=== PATIENT | female | born 1980 | race American Indian/Alaskan Native ===

== ENCOUNTER 2018-06-17 06:47 | Inpatient (IN) | payer SELFPAY ==
[2018-06-17 07:28] LABS: Bacteria,Urine 1+ /HPF (Negative); Bilirubin,Urine NEG (Negative); Blood,Urine NEG (Negative); Color,Urine Yellow (Yellow); Mucus,Urine FEW /HPF; Protein,Urine <15 mg/dL mg/dL (Negative); Urobilinogen,Urine < 2.0 mg/dL (<2.0)
[2018-06-17 07:50] LABS: Basophils % (Auto) 0.3 % (0.0-1.8); Eosinophils # (Auto) 0.1 K/mm3 (0.0-0.4); Eosinophils % (Auto) 0.6 % (0.0-4.3); Hematocrit 38.5 % (30.3-42.9); Hemoglobin 13.3 gm/dl (10.1-14.3); Lymphocytes # (Auto) 2.5 K/mm3 (1.2-5.4); Lymphocytes % (Auto) 29.9 % (13.4-35.0); Mean Corpuscular HGB Conc 35 % (30-34); Mean Corpuscular Volume 102 fl (79-97); Monocytes # (Auto) 0.7 K/mm3 (0.0-0.8); Monocytes % (Auto) 8.3 % (0.0-7.3); Platelet Count 297 K/mm3 (140-440); Red Blood Count 3.77 M/mm3 (3.65-5.03); Red Cell Distribution Width 12.3 % (13.2-15.2)
[2018-06-17 08:06] LABS: Alanine Aminotransferase 11 units/L (7-56); Albumin 4.3 g/dL (3.9-5); BUN/Creatinine Ratio 12; Blood Urea Nitrogen 6 mg/dL (7-17); Calcium 9.1 mg/dL (8.4-10.2); Hemolysis Index 6
--- NOTE | 2018-06-17 08:41 | Emergency Department Report ---
<JOSSIRINA - Last Filed: 06/17/18 10:44> ED HPI - General Chief complaint: Abdominal Pain Stated complaint: ABD PAIN Time Seen by Provider: 06/17/18 07:55 - Related Data Home Medications Medication Instructions Recorded Confirmed Last Taken No Known Home Medications [No 06/17/18 06/17/18 Unknown Reported Home Medications] Allergies Allergy/AdvReac Type Severity Reaction Status Date / Time metronidazole [From Flagyl] Allergy Swelling Verified 06/17/18 07:00 ED Past Medical Hx - Medications Home Medications: Home Medications Medication Instructions Recorded Confirmed Last Taken Type No Known Home Medications [No 06/17/18 06/17/18 Unknown History Reported Home Medications] ED Medical Decision Making - Lab Data Result diagrams: 06/17/18 07:38 06/17/18 07:38 - Medical Decision Making Had a ohqp-da-dxdy with this patient. Patient on review of the patient's ultrasound was found to have a heterotopic . STARCHMAKER has been called for consultation the patient will be admitted. ED Disposition Clinical Impression: Ectopic Qualifiers: Location of ectopic : tubal Intrauterine status: with intrauterine Laterality: left Qualified Code(s): O00.112 - Left tubal with intrauterine Disposition: OP ADMIT IP TO THIS HOSP Condition: Stable Referrals: YG LIGHT MD [Primary Care Provider] - 3-5 Days <GARY GIBSON - Last Filed: 06/17/18 11:38> ED HPI - General Source: patient Mode of arrival: Ambulatory Limitations: No Limitations - History of Present Illness Initial comments: This is a 37-year-old female nontoxic, well nourished in appearance, no acute signs of distress presents to the ED with c/o of pelvic pain 1 day. Patient denies any nausea or vomiting. Patient describes pelvic pain as cramping and aching with level of 8/10 diffuse. Patient denies chest pain, short of breath, fever, chills, headache, stiff neck, numbness or tingling. Denies any vaginal bleeding. Patient denies any abdominal pain. Patient denies any diarrhea or constipation. Patient denies any recent travels. Patient stated allergies to metronidazole. Denies any PMH. LMP 04/2018. Complaint: other (pelvic pain) -: days(s) Location: pelvis Radiation: none Severity: mild Severity scale (0 -10): 8 Quality: aching Consistency: constant Improves with: none Worsens with: none Associated symptoms: other (pelvic pain). denies: nausea/vomiting, vaginal bleeding, vaginal discharge, abdominal pain, dysuria, headache, vision changes, malaise, dysparuenia, rash, seizure, shortness of breath, syncope, weakness Vaginal bleeding: none :: Yes Pre- care: none ED Review of Systems ROS: Stated complaint: ABD PAIN Other details as noted in HPI Constitutional: denies: chills, fever Eyes: denies: eye pain, eye discharge, vision change ENT: denies: ear pain, throat pain Respiratory: denies: cough, shortness of breath, wheezing Cardiovascular: denies: chest pain, palpitations Endocrine: no symptoms reported Gastrointestinal: other (pelvic pain). denies: abdominal pain, nausea, vomiting , diarrhea Genitourinary: denies: urgency, dysuria, discharge Musculoskeletal: denies: back pain, joint swelling, arthralgia Skin: denies: rash, lesions Neurological: denies: headache, weakness, paresthesias Psychiatric: denies: anxiety, depression Hematological/Lymphatic: denies: easy bleeding, easy bruising ED Past Medical Hx - Past Medical History Previous Medical History?: No - Surgical History Past Surgical History?: Yes Additional Surgical History: reconstruction nose. abd - Social History Smoking Status: Current Every Day Smoker Substance Use Type: Alcohol ED Physical Exam - General Limitations: No Limitations General appearance: alert, in no apparent distress - Head Head exam: Present: atraumatic, normocephalic - Neck Neck exam: Present: normal inspection, full ROM - Respiratory Respiratory exam: Present: normal lung sounds bilaterally. Absent: respiratory distress, wheezes, rales, rhonchi, stridor, chest wall tenderness, accessory muscle use, decreased breath sounds, prolonged expiratory - Cardiovascular Cardiovascular Exam: Present: regular rate, normal rhythm, normal heart sounds. Absent: bradycardia, tachycardia, irregular rhythm, systolic murmur, diastolic murmur, rubs, gallop - GI/Abdominal GI/Abdominal exam: Present: soft, normal bowel sounds. Absent: distended, tenderness, guarding, rebound, rigid, diminished bowel sounds - Expanded GI/Abdominal Exam Expanded GI/Abdominal exam: Absent: psoas sign, Nixon's sign, Rovsing's sign, tenderness at Mcburney's Point, ascites - Extremities Exam Extremities exam: Present: normal inspection, full ROM - Back Exam Back exam: Present: normal inspection, full ROM - Neurological Exam Neurological exam: Present: alert, oriented X3 - Psychiatric Psychiatric exam: Present: normal affect, normal mood - Skin Skin exam: Present: warm, dry, intact, normal color. Absent: rash ED Course Vital Signs 06/17/18 06/17/18 06/17/18 06:49 11:14 11:16 Temperature 97.6 F 98.6 F Pulse Rate 85 63 Respiratory 16 14 14 Rate Blood Pressure 128/73 104/39 O2 Sat by Pulse 100 100 Oximetry - Reevaluation(s) Reevaluation #1: 06/17/18 08:39 Patient is speaking in full sentences with no signs of distress noted. Reevaluation #2: 06/17/18 11:37 Patient is resting comfortably with no signs of distress. - Consultations Consultation #1: 06/17/18 09:41 My OBGYN consulted for ectopic . Awaiting call back. Consultation #2: 06/17/18 10:05 Dr. Middleton (OBGYN) was consulted and agrees to the ED plan of care and admission for possible surgery. ED Medical Decision Making - Lab Data Result diagrams: 06/17/18 07:38 06/17/18 07:38 - Medical Decision Making This is a 37-year-old female that presents with heterotopic . Patient is stable and was examined by me and Donovan Telles. Patient was conuslted with Dr. Middleton that agrees for admission and possible surgery. Patient put on NPO. Given pain management. Labs obtained. At time of admission, the patient does not seem toxic or ill in appearance. No acute signs of distress noted. Patient agrees to admission treatment plan of care. No further questions noted by the patient. Critical care attestation.: If time is entered above; I have spent that time in minutes in the direct care of this critically ill patient, excluding procedure time. ED Disposition Is pt being admited?: Yes
[2018-06-17] MEDS ORDERED: NACL 0.9% 1000 ML 1,000 ML IV ONE (09:41)
--- NOTE | 2018-06-17 09:48 | Ultrasound Report ---
PROCEDURE: US OB TRANSVAGINAL, US OB <= 14 WEEKS FETUS TECHNIQUE: Transabdominal and transvaginal imaging of the pelvis was performed. HISTORY: pelvic pain COMPARISONS: None. FINDINGS: The uterus measures 10.2 x 6.5 x 7.4 cm and is anteverted. There is an intrauterine with a heart rate of 166 beats per minute. Mean gestational sac diameter is 3.51 cm, corresponding to a gestational age of 8 weeks, 5 days. [place]-rump length is 2.36 cm, corresponding to a gestational age of 9 weeks, 0 days. Composite gestational age by ultrasound is 8 weeks, 6 days, with estimated date of delivery of 2018. Within the left adnexa, there is a 7.9 x 5.4 x 6.6 cm area with a pole measuring 2.3 cm. The trasound technologist visualized positive heart motion during the study, but was not able to document this finding due to overlying bowel gas The left ovary measures 2.6 x 2.1 x 1.3 cm and is normal in appearance. Right ovary measures 2.9 x 1.8 x 1.9 cm and is normal in appearance. IMPRESSION: Heterotopic with intrauterine and left ectopic . Gestational age by ultr asound is 8 weeks, 6 days, estimated date of delivery of 01/21/2019. Heart motion was not documented due to overlying bowel gas. Recommend repeat imaging to document hear t motion. Findings were discussed with SHERLYN Murray at 9:35 AM, Eastern standard time, on 06/17/2018. This document is electronically signed by Charity Sotelo MD., June 17 2018 09:46:09 AM ET
--- NOTE | 2018-06-17 13:50 | History and Physical Report ---
History of Present Illness Date of examination: 06/17/18 Chief complaint: Severe pelvic pain History of present illness: This is a 37-year-old female 3 para 1011 who presented to the ED yesterday complaining of severe pelvic pain for 1 day. She denies fever, chills, nausea, vomiting. She also denies vaginal bleeding. Her evaluation revealed an approximately 8 cm left adnexal mass possibly consistent with ectopic however the ultrasound also revealed a viable intrauterine at 8 weeks and 6 days. 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 She denies history of abnormal Pap smears. OB history is significant for full-term vaginal delivery in 2004 followed by a 7 month spontaneous that required a D&C in 2014) Past Surgical History: Other (D&C; nose) Social history: smoking, full code, other (patient states she smoked marijuana approximately 7 months ago). denies: alcohol abuse, IV drug use Family history: no significant family history Medications and Allergies Allergies Allergy/AdvReac Type Severity Reaction Status Date / Time metronidazole [From Flagyl] Allergy Swelling Verified 06/17/18 07:00 Home Medications Medication Instructions Recorded Confirmed Last Taken Type No Known Home Medications [No 06/17/18 06/17/18 Unknown History Reported Home Medications] Review of Systems All systems: negative - Genitourinary Genitourinary: pelvic pain Exam Vital Signs Temp Pulse Resp BP Pulse Ox 97.6 F 85 16 128/73 100 06/17/18 06:49 06/17/18 06:49 06/17/18 06:49 06/17/18 06:49 06/17/18 06:49 - General physical appearance Positive: well developed, well nourished, no distress, moderate pain - Abdomen Abdomen: Present: soft. Absent: distended, rebound, guarding Results - Labs 06/17/18 07:38 06/17/18 07:38 Abnormal lab results 06/17/18 06/17/18 06/17/18 Range/Units 07:38 07:38 07:38 MCV 102 H (79-97) fl MCH 35 H (28-32) pg MCHC 35 H (30-34) % RDW 12.3 L (13.2-15.2) % [place] % (Auto) 8.3 H (0.0-7.3) % Potassium 3.5 L (3.6-5.0) mmol/L BUN 6 L (7-17) mg/dL Creatinine 0.5 L (0.7-1.2) mg/dL HCG, Quant 97386 H (0-4) mIU/mL Diabetes panel 06/17/18 Range/Units 07:38 Sodium 137 (137-145) mmol/L Potassium 3.5 L (3.6-5.0) mmol/L Chloride 102.5 (98-107) mmol/L Carbon Dioxide 26 (22-30) mmol/L BUN 6 L (7-17) mg/dL Creatinine 0.5 L (0.7-1.2) mg/dL Glucose 97 (65-100) mg/dL Calcium 9.1 (8.4-10.2) mg/dL AST 13 (5-40) units/L ALT 11 (7-56) units/L Alkaline Phosphatase 52 (35-129) units/L Total Protein 6.7 (6.3-8.2) g/dL Albumin 4.3 (3.9-5) g/dL Calcium panel 06/17/18 Range/Units 07:38 Calcium 9.1 (8.4-10.2) mg/dL Albumin 4.3 (3.9-5) g/dL Pituitary panel 06/17/18 Range/Units 07:38 Sodium 137 (137-145) mmol/L Potassium 3.5 L (3.6-5.0) mmol/L Chloride 102.5 (98-107) mmol/L Carbon Dioxide 26 (22-30) mmol/L BUN 6 L (7-17) mg/dL Creatinine 0.5 L (0.7-1.2) mg/dL Glucose 97 (65-100) mg/dL Calcium 9.1 (8.4-10.2) mg/dL Adrenal panel 06/17/18 Range/Units 07:38 Sodium 137 (137-145) mmol/L Potassium 3.5 L (3.6-5.0) mmol/L Chloride 102.5 (98-107) mmol/L Carbon Dioxide 26 (22-30) mmol/L BUN 6 L (7-17) mg/dL Creatinine 0.5 L (0.7-1.2) mg/dL Glucose 97 (65-100) mg/dL Calcium 9.1 (8.4-10.2) mg/dL Total Bilirubin 0.20 (0.1-1.2) mg/dL AST 13 (5-40) units/L ALT 11 (7-56) units/L Alkaline Phosphatase 52 (35-129) units/L Total Protein 6.7 (6.3-8.2) g/dL Albumin 4.3 (3.9-5) g/dL - Imaging US - pelvic: report reviewed, image reviewed (Both transabdominal and transvaginal images were reviewed. Transvaginal images revealed a mass labeled as occurring in the left adnexa that is reported as an ectopic qu estionable heart rate.) Assessment and Plan - Patient Problems (1) 8 weeks gestation of Current Visit: Yes Status: Acute (2) Ectopic Current Visit: Yes Status: Acute Qualifiers: Location of ectopic : tubal Intrauterine status: with intrauterine Laterality: left Qualified Code(s): O00.112 - Left tubal with intrauterine Plan to address problem: Ultrasound images and diagnosis were discussed with patient. She was informed pregnancies in the uterus and the tube simultaneously are very rare. It was emphasized to her the difficulty with confirming this diagnosis through blood work and imaging. Options were extensively reviewed with this patient, including but not limited to, observation versus proceeding with surgical intervention. She was informed she should choose observation and this is an in the tube , she would be at risk for bleeding intra-abdominally and possible should the tube rupture. Diagnostic laparoscopy was explained. She was informed of risks, including but not limited to, bleeding that may require blood transfusion, infection, injury to her bowel and/or bladder. She was informed that any of these complications or others may be fatal. It was further emphasized that this procedure may lead to a miscarriage of the viable intrauterine . She is aware that if she has a in the tube, the entire tube may be removed due to the size of the that is documented by imaging and that any attempt to maintain the tube may lead to excessive bleeding.
[2018-06-17] MEDS ORDERED: NACL 0.9% 1000 ML 1,000 ML ONE (13:57)
[2018-06-17] MEDS ORDERED: ANCEF/STERILE WATER 2 GM/20 ML 2 GM/20 ML SYRINGE IV NR (14:00)
--- NOTE | 2018-06-17 14:32 | Anesthesia Consultation ---
Anesthesia Consult and Med Hx Date of service: 06/17/18 - Airway Anesthetic Teeth Evaluation: Good ROM Head & Neck: Adequate Mental/Hyoid Distance: Adequate Mallampati Class: Class II Intubation Access Assessment: Good - Pulmonary Exam CTA: Yes - Cardiac Exam Cardiac Exam: No Murmur - Pre-Operative Health Status ASA Pre-Surgery Classification: ASA2 Proposed Anesthetic Plan: General - Pulmonary Hx Smoking: Yes
--- NOTE | 2018-06-17 14:32 | Anesthesia Day of Surgery ---
Anesthesia Day of Surgery - Day of Surgery Patient Examined: Yes Patient H&P Reviewed: Yes Patient is NPO: Yes
[2018-06-17] MEDS ORDERED: MARCAINE 0.5% INFILTRATI ONE ×2 (14:55→16:00)
[2018-06-17] MEDS ORDERED: LACTATED RINGERS 1,000 ML IV SCH (15:00)
[2018-06-17] MEDS ORDERED: VERSED IV NR (15:00)
[2018-06-17] MEDS ORDERED: PEPCID PO NR (15:00)
[2018-06-17] MEDS ORDERED: ZEMURON IV ONE (15:08)
[2018-06-17] MEDS ORDERED: ROBINUL ONE (15:08)
[2018-06-17] MEDS ORDERED: BLOXIVERZ ONE (15:08)
[2018-06-17] MEDS ORDERED: XYLOCAINE MPF 2% ONE (15:08)
[2018-06-17] MEDS ORDERED: DECADRON ONE (15:08)
[2018-06-17] MEDS ORDERED: ZOFRAN ONE (15:08)
[2018-06-17] MEDS ORDERED: SUBLIMAZE ONE ×2 (15:09→17:29)
[2018-06-17] MEDS ORDERED: DIPRIVAN 10 MG/ML IV ONE (15:09)
[2018-06-17] MEDS ORDERED: NACL 0.9% IR ONE (16:00)
[2018-06-17] MEDS ORDERED: NEO SYNEPHRINE/NS Syringe(OR USE) IV ONE (16:05)
--- NOTE | 2018-06-17 17:14 | Event Note ---
Date: 06/17/18 37 yo M who was taken to the OR by Dr. Middleton for possible left ectopic . During the procedure, the left tube was adhered to the sigmoid colon and the left pelvic wall. DUANE was undertaken by Dr. Middleton and general surgery consulted introperatively to examine colon to r/o injury. Please see separate procedure note.
--- NOTE | 2018-06-17 17:20 | Procedure Note ---
Date of procedure: 06/17/18 Pre-op diagnosis: possible colon injury Post-op diagnosis: same Procedure: diagnostic laparoscopy Findings: Intraoperative consult called to examine sigmoid colon after laparoscopic lysis of adhesions was completed by Dr. Middleton. Sigmoid colon densely adhered to left fallopian tube. Thoroughly examined. No perforation or gross spillage seen. No injury seen. No masses seen. Anesthesia: ELHAMA Surgeon: FRANC AGRAWAL Estimated blood loss: none Pathology: none Condition: stable Disposition: other (OR for completion of case by Dr. Middleton)
[2018-06-17] MEDS: DILAUDID IV PRN ×2 (17:35→18:33)
--- NOTE | 2018-06-17 17:35 | Operative Report ---
Operative Report Operative Report: Date: 06/17/2018 Preoperative diagnosis: 1. Intrauterine at 8 weeks 6 days 2. Possible left tubal ectopic 3. Severe pelvic pain Postoperative diagnosis: 1. Intrauterine at 8 weeks 6 days 2. Possible left tubal ectopic 3. Severe pelvic pain Procedure: 1. Diagnostic laparoscopy with lysis of adhesions Surgeon: Shelli Middleton MD Tunnel Elastic Operator Chainstitch: Amie Zendejas MD Anesthesiologist: Conchita Olivares M.D. Anesthesia: Gen. endotracheal anesthesia EBL: Minimal Findings: Adhesion of sigmoid colon to the left adnexa. No evidence of tubal or otherwise ectopic . Grossly normal right tube and ovary with mass luteum of . Grossly normal left tube and ovary Procedure: Patient was taken to the OR and placed in supine position. Gen. anesthesia was induced. She was then placed in the dorsolithotomy position. Exam under anesthesia was unremarkable. She was then prepped and draped in usual sterile fashion. Timeout was completed. A sponge stick was introduced into the vagina. The nonlatex catheter was introduced into the bladder with drainage of clear yellow urine. Sterile gloves replaced and attention was turned to the abdomen. A midline supraumbilical incision was made through which was placed a 5 mm trocar with camera and scope attached. The abdomen was insufflated. No bowel, bladder, ureteral, or major vascular injury noted. Patient was then placed in steep Trendelenburg position. The above was noted. Additional trochars were placed as follows: 5 mm trocar was placed in the midline suprapubic region approximately 2 cm superior to the symphysis through an incision under direct visualization and an additional 5 mm trocar was placed in the right lower quadrant through an incision under direct visualization. Again no bowel, bladder or ureteral or major vascular injury was noted. With both blunt and sharp dissection the bowel adhesions were released from the left adnexa and sidewall. The entire tube was visualized as well as the ovary. There was no evidence of ectopic or any other mass. Dr. Zendejas presented to confirm no bowel injury nor any bowel masses were present. Once hemostasis was noted the procedure was ended. Patient was taken out of Trendelenburg position. The abdomen was desufflated and the trochars were removed.. The incisions were repaired using 4-0 Vicryl in a subcuticular manner and infused with half % Marcaine without epinephrine. The Nelson catheter was removed with drainage of clear yellow urine noted. The sponge stick was removed and no blood was noted on the sponge stick nor any bleeding from the vagina was noted. Patient was taken to recovery room in stable condition.
[2018-06-17] MEDS ORDERED: DILAUDID ONE (17:37)
[2018-06-17] MEDS ORDERED: ZOFRAN IV PRN (17:43)
--- NOTE | 2018-06-17 18:15 | Discharge Summary ---
Providers - Providers Date of discharge: 06/17/18 Attending physician: RAEGAN CHARLES [facility] Hospitalization Condition: Good Procedures: Diagnostic laparoscopy with lysis of adhesions Hospital course: Please see H&P and operative report Disposition: DC-01 TO HOME OR SELFCARE - Discharge Diagnoses (1) 8 weeks gestation of Status: Acute (2) Ectopic Status: Ruled-out Qualifiers: Location of ectopic : tubal Intrauterine status: with intrauterine Laterality: left Qualified Code(s): O00.112 - Left tubal with intrauterine (3) Smoker Status: Chronic Core Measure Documentation - Palliative Care Palliative Care/ Comfort Measures: Not Applicable - Core Measures Any of the following diagnoses?: none Exam - Constitutional Vitals: Temp Pulse Resp BP Pulse Ox 97.6 F 70 20 143/90 100 06/17/18 17:31 06/17/18 17:31 06/17/18 17:31 06/17/18 17:31 06/17/18 17:31 General appearance: Present: no acute distress - Respiratory Respiratory effort: normal - Cardiovascular Rhythm: regular Plan Activity: other (no sex, no driving for 1 week) Weight Bearing Status: Weight Bear as Tolerated Diet: regular Wound: open to air, keep clean and dry Special Instructions: no heavy lifting (greater than 25 pounds) Additional Instructions: Stop smoking, alcohol use and drug/marijuana usage Follow up with: YG LIGHT MD [Primary Care Provider] - 3-5 Days EREN DIAZ MD [Staff Physician] - 7 Days Prescriptions: oxyCODONE /ACETAMINOPHEN [Percocet 5/325] 1 tab PO Q6HR PRN #5 tablet PRN Reason: Pain Pnv No.118/Iron Fumarate/FA [ 19 Chewable] 1 each PO QDAY #90 tab.chew
[2018-06-17] MEDS ORDERED: IBUPROFEN PO PRN (21:46)
[2018-06-17] MEDS: PERCOCET 5/325 PO PRN (22:01)
--- NOTE | 2018-06-18 01:12 | Event Note ---
Date: 06/18/18 Last pm I received a call from Fariba Alberto DESIGN ENGINEER MARINE EQUIPMENT taking care of this patient stating she is homeless and the RN Wellness Consultant is requesting admission until am. After discussing this with PRIYANKA Hopkins, ROLANDO Guerrier and Qasim Napoles diesel truck crane operator and international relations professor server security administrator the decision was made to admit her overnight. She was admitted to and according to the staff submarine warfare officer shortly after arrival she began having erratic behavior stating she was being sodomized and the RN were going to be sodomized as well. I was called b/c she requested IV pain medic ation, no order was given. I then was called by RN stating patient is walking thru the kim naked, yelling. At my arrival she was in her room, dressed, stating she wants to leave, now states she has a home here she just needed to wait for someone to pick her up. Immediately after that she said I needed [place] talk [place] and she did not want to go to the upstairs. A Form 1013 was completed. She was assured she would not but sent to the third floor but she could not leave because I was concerned for her well being. The Crisis counselor presented at that moment to evaluate her. I was not present for that evaluated.
[2018-06-18] MEDS ORDERED: ATIVAN IM PRN ×2 (01:44→18:31)
[2018-06-18] MEDS ORDERED: ALUM-MAG HYDROX-SIMETH 200-200-20MG/5ML PO PRN (01:48)
[2018-06-18] MEDS ORDERED: MILK OF MAGNESIA PO PRN (01:48)
[2018-06-18 04:56] LABS: Bilirubin,Urine NEG (Negative); Blood,Urine NEG (Negative); Color,Urine Straw (Yellow); Protein,Urine <15 mg/dL mg/dL (Negative); RBC,Urine < 1.0 /HPF (0.0-6.0); Urobilinogen,Urine < 2.0 mg/dL (<2.0); WBC,Urine < 1.0 /HPF (0.0-6.0)
[2018-06-18 05:04] LABS: Amphetamine Screen,Urine PRESUMPTIVE NEGATIVE; Benzodiazepines Screen,Urine PRESUMPTIVE NEGATIVE; Cocaine Screen,Urine PRESUMPTIVE NEGATIVE; Methadone Screen,Urine PRESUMPTIVE NEGATIVE; Opiate Screen,Urine PRESUMPTIVE NEGATIVE
[2018-06-18 05:48] LABS: Cannabinoid Screen,Urine PRESUMPTIVE POSITIVE
[2018-06-18] MEDS: PERCOCET 5/325 PO PRN ×4 (05:52→19:55)
[2018-06-18] MEDS ORDERED: IBUPROFEN PO PRN (09:00)
[2018-06-18] MEDS: TYLENOL PO PRN (14:15)
--- NOTE | 2018-06-18 14:17 | Event Note ---
Date: 06/18/18 Patient stable with sitter in the room awaiting evaluation by psychiatrist
[2018-06-19] MEDS ORDERED: ATIVAN IV ONE (02:00)
[2018-06-19] MEDS: ZOFRAN ODT PO PRN ×2 (02:04→23:19)
[2018-06-19] MEDS: PERCOCET 5/325 PO PRN ×3 (02:04→20:34)
--- NOTE | 2018-06-19 09:27 | Progress Note ---
Objective - Vital Signs Latest vital signs: Vital Signs Temp Pulse Resp Resp BP Pulse Ox 06/19/18 02:04 18 06/18/18 23:55 98.6 F 70 20 114/66 99 06/18/18 20:05 98.4 F 78 18 114/50 98 06/18/18 20:00 18 06/18/18 19:55 18 06/18/18 19:54 18 Intake and Output 06/18/18 06/19/18 06/19/18 22:59 06:59 14:59 Other: Voiding Method Toilet
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
[2018-06-20] MEDS: AMBIEN PO PRN ×2 (02:10→22:59)
[2018-06-20] MEDS: PERCOCET 5/325 PO PRN (02:10)
[2018-06-20] MEDS: TYLENOL PO PRN ×2 (05:17→13:28)
--- NOTE | 2018-06-20 10:10 | Progress Note ---
Assessment and Plan - Patient Problems (1) Bipolar disorder without psychotic features Current Visit: Yes Status: Acute Plan to address problem: Still with erratic and bizarre behavior. Patient has been receiving Lorazepam prn. Would greatly appreciate input from Mental Health provider concerning medication recommendations to stabilize patient (2) 9 weeks gestation of Current Visit: Yes Status: Acute Plan to address problem: She does not have any evidence of an acute abdomen. Her incisions are healing well w/o s/s infections. There is no obvious evidence for SAB at this time therefore US is not indicated. She has now requested another digital marketing assistant for her care, she was instructed to inform the raftsman of her request. med spec will investigate the appropriate course to assist patient's request. She is medically stable for discharge. (3) Smoker Current Visit: Yes Status: Chronic (4) Marijuana smoker Current Visit: Yes Status: Acute Subjective Date of service: 06/20/18 Interval history: Patient c/o pain and thinks she's having a miscarriage and would like an US, she denies n/v today and no bleeding. Objective - Constitutional Vitals: Vital Signs - 12hr 06/20/18 04:30 Temperature 98.7 F Pulse Rate 77 Respiratory 18 Rate Blood Pressure 114/72 [Left] General appearance: Present: well-nourished, disheveled (agitated) - Gastrointestinal General gastrointestinal: Present: soft, non-tender, non-distended, normal bowel sounds - Labs CBC & Chem 7: 06/17/18 07:38 06/17/18 07:38 Medications & Allergies - Medications Allergies/Adverse Reactions: Allergies latex Allergy (Verified 06/17/18 14:27) Swelling metronidazole [From Flagyl] Allergy (Verified 06/17/18 07:00) Swelling Home Medications: Home Medications Medication Instructions Recorded Confirmed Last Taken Type Pnv No.118/Iron Fumarate/FA 1 each PO QDAY #90 tab.chew 06/17/18 Unknown Rx [ 19 Chewable] oxyCODONE /ACETAMINOPHEN [Percocet 1 tab PO Q6HR PRN #5 tablet 06/17/18 Unknown Rx 5/325] Active Medications: Generic Name Dose Route Start Last Admin Trade Name Freq PRN Reason Stop Dose Admin Acetaminophen 650 mg 06/17/18 21:46 06/20/18 05:17 Tylenol PO 650 mg Q6H PRN Administration Fever >100.5/FRANCO Al Hydrox/Mg Hydrox/Simethicone 30 ml 06/18/18 01:48 Alum-Mag Hydrox-Simeth [id number]/5ml PO Q6HR PRN Indigestion Magnesium Hydroxide 30 ml 06/18/18 01:48 Milk Of Magnesia PO Q12HR PRN Constipation Ondansetron HCl 4 mg 06/19/18 00:23 06/19/18 23:19 Zofran Odt PO 06/21/18 00:22 4 mg Q8H PRN Administration Nausea Zolpidem Tartrate 10 mg 06/20/18 01:22 06/20/18 02:10 Ambien PO 10 mg QHS PRN Administration Insomnia
--- NOTE | 2018-06-20 12:15 | Progress Note ---
Subjective - Reason for Consult Consult date: 06/20/18 Reason for consult: Psychiatric Follow-up Evaluation - Chief Complaint Chief complaint: "I'm fine." Patient is a 37-year-old female 3 who presented to the ER for pelvic pain. The patient is 8 weeks . Psychiatry was consulted to see the patient for bizarre behavior. Today the patient continues to be tangential during the assessment. She denies SI/HI's, AVH's. She reports " nothing is wrong with me. I'm being kept here for nothing." She denies erratic sleep and a poor appetite. She denies recreational drug use, but was positive for marijuana. She denies alcohol consumption (etoh). Although she denies, patient continues to have bizarre behavior. Per charge nurse patient believes the air conditioner vent is sending radio waves into her head and slicing her brain. Also, she stated that an animal was implanted into her stomach from her outpatient surgery. Mental Status Exam - Vital signs Last Vital Signs Temp 98.5 F 06/20/18 08:28 Pulse 62 06/20/18 08:28 Resp 18 06/20/18 08:28 BP 100/62 06/20/18 08:28 Pulse Ox 100 06/20/18 08:28 - Exam Narrative exam: Mental Status Exam Appearance: casual clothes Behavior: regular eye contact Speech: hyper-verbal Mood:: labile ; " I'm fine" Affect: congruent to mood Thought Process: tangential Thought Content: denies SI/HI's and AVH's, delusions; bizarre Motor Activity: ambulatory Cognition: A/O x3 Insight: variable Judgment: variable Assessment and Plan Impression: Unspecified Psychosis. Cannabis Use DO. Hx of Depression per the patient. Today the patient is tangent during the assessment. She denies SI/HI's, A/VHs, and delusions. DDx: R/O Bipolar DO with psychosis, Substance Induced Psychosis Recommendation/Plan: 1. Continue 1013. 2. Risk/Benefits discussed with the patient reference antipsychotics, she prefer not to take any new medication at this time. Will follow up with the patient in 24 hours. Disposition: The patient was referred to inpatient psychiatric services. The referral process was explained to the patient's assigned nurse. Will staff with Dr. Moran.
[2018-06-20] MEDS ORDERED: NITRATEST PAPER MC ONE (12:43)
--- NOTE | 2018-06-20 12:46 | Progress Note ---
Assessment and Plan - Patient Problems (1) Bipolar disorder without psychotic features Current Visit: Yes Status: Acute (2) 9 weeks gestation of Current Visit: Yes Status: Acute (3) Smoker Current Visit: Yes Status: Chronic (4) Marijuana smoker Current Visit: Yes Status: Acute Subjective Date of service: 06/20/18 Interval history: Received call from Rayna Lowry RN stating patient complains of leaking and demanding an US. At my arrival to perform SSE, Whitney Sibley RN and sitter present, patient stated she does not want me to be her provider. Therefore SSE not performed and I left the room. agitator operator attempting to determine the next step to get her another provider. Will remain available until another provider obtained. Objective - Constitutional Vitals: Vital Signs - 12hr 06/20/18 06/20/18 04:30 08:28 Temperature 98.7 F 98.5 F Pulse Rate 77 62 Respiratory 18 18 Rate Blood Pressure 114/72 100/62 [Left] O2 Sat by Pulse 100 Oximetry - Labs CBC & Chem 7: 06/17/18 07:38 06/17/18 07:38 Labs: Abnormal lab results 06/20/18 Range/Units 09:04 Free T4 1.64 H (0.76-1.46) ng/dL Medications & Allergies - Medications Allergies/Adverse Reactions: Allergies latex Allergy (Verified 06/17/18 14:27) Swelling metronidazole [From Flagyl] Allergy (Verified 06/17/18 07:00) Swelling Home Medications: Home Medications Medication Instructions Recorded Confirmed Last Taken Type Pnv No.118/Iron Fumarate/FA 1 each PO QDAY #90 tab.chew 06/17/18 Unknown Rx [ 19 Chewable] oxyCODONE /ACETAMINOPHEN [Percocet 1 tab PO Q6HR PRN #5 tablet 06/17/18 Unknown Rx 5/325] Active Medications: Generic Name Dose Route Start Last Admin Trade Name Freq PRN Reason Stop Dose Admin Acetaminophen 650 mg 06/17/18 21:46 06/20/18 05:17 Tylenol PO 650 mg Q6H PRN Administration Fever >100.5/FRANCO Al Hydrox/Mg Hydrox/Simethicone 30 ml 06/18/18 01:48 Alum-Mag Hydrox-Simeth [phone]/5ml PO Q6HR PRN Indigestion Diagnostic Test (Pha) 1 each 06/20/18 12:43 Nitratest Paper MC 06/20/18 12:44 ONCE ONE Magnesium Hydroxide 30 ml 06/18/18 01:48 Milk Of Magnesia PO Q12HR PRN Constipation Ondansetron HCl 4 mg 06/19/18 00:23 06/19/18 23:19 Zofran Odt PO 06/21/18 00:22 4 mg Q8H PRN Administration Nausea Zolpidem Tartrate 10 mg 06/20/18 01:22 06/20/18 02:10 Ambien PO 10 mg QHS PRN Administration Insomnia
[2018-06-21] MEDS: TYLENOL PO PRN ×3 (01:31→20:54)
--- NOTE | 2018-06-21 02:58 | Event Note ---
Date: 06/21/18 Notified again by sales operations analyst stating patient complains of ROM, no fluid or bleeding noted per RN. Instructed to continue observation.
--- NOTE | 2018-06-21 03:22 | Event Note ---
Date: 06/21/18 Labs noted: This transient, usually subclinical, hyperthyroidism should be considered a normal physiologic finding. this can be followed as an outpatient, no treatment at this time
--- NOTE | 2018-06-21 11:41 | Progress Note ---
Subjective - Reason for Consult Consult date: 06/21/18 Reason for consult: Psychiatric Follow-up Evaluation - Chief Complaint Chief complaint: "I'm okay" Patient is a 37-year-old female 3 who presented to the ER for pelvic pain. The patient is 8 weeks . Psychiatry was consulted to see the patient for bizarre behavior. Today the patient is less tangential during the assessment. She denies SI/HI's, AVH's,and delusions. She reports " nothing is wrong with me. " She denies erratic sleep and poor appetite. Later, patient reports that she moved here from [facility] approximately 4 months ago. Currently, she lives with her boyfriend/baby's () father intermittently. Provider will attempt to gain collateral, . Mental Status Exam - Vital signs Last Vital Signs Temp 98.7 F 06/21/18 09:00 Pulse 79 06/21/18 09:00 Resp 18 06/21/18 09:00 BP 116/71 06/21/18 09:00 Pulse Ox 98 06/21/18 09:00 - Exam Narrative exam: Mental Status Exam Appearance: casual clothes Behavior: regular eye contact Speech: regular rate and tone Mood: " I feel fine" Affect: congruent to mood Thought Process: tangential, circumstantial- less/improved Thought Content: denies SI/HI's and AVH's, delusions Motor Activity: ambulatory Cognition: A/O x3 Insight: variable Judgment: variable Assessment and Plan Impression: Unspecified Psychosis. Cannabis Use DO. Hx of Depression per the patient. Today the patient is less tangent during the assessment. She denies SI/HI's, A/VHs, and delusions. Thoughts appear to be more clear, less disorganized/bizarre. DDx: R/O Bipolar DO with psychosis, Substance Induced Psychosis Recommendation/Plan: 1. Continue 1013. 2. Risk/Benefits discussed with the patient reference antipsychotics, she prefer not to take any new medication at this time. Will follow up with the patient in 24 hours. 3. Will attempt to gain collateral to determine proper disposition. , . Disposition: Patient is under review at [facility]. Staffed with Dr. Moran.
[2018-06-21] MEDS: AMBIEN PO PRN (23:19)
[2018-06-22] MEDS: TYLENOL PO PRN ×3 (04:17→23:32)
--- NOTE | 2018-06-22 10:48 | Progress Note ---
Subjective - Reason for Consult Consult date: 06/22/18 Reason for consult: Psychiatry Follow-up - Chief Complaint Chief complaint: "Jarred" Patient is a 37-year-old female 3 who presented to the ER for pelvic pain. The patient is 8 weeks . Psychiatry was consulted to see the patient for bizarre behavior. Today the patient is cooperative, but irritable during the assessment. She adamant that she does not have an METAPHYSICS TEACHER p hysician and also need a ultrasound of her abdomen. She was asked about the content she spoke with me about on Friday06/19/2018, she stated, "That's nothing." She denies SI/HI's and AVH's. Mental Status Exam - Vital signs Last Vital Signs Temp 98.8 F 06/22/18 09:00 Pulse 72 06/22/18 09:00 Resp 15 06/22/18 09:00 BP 107/60 06/22/18 09:00 Pulse Ox 98 06/22/18 09:00 - Exam Narrative exam: MSE: Appearance: in hospital attire Behavior: regular eye contact Speech: regular rate and tone Mood:: "okay" Affect: congruent to mood Thought Process: circumstantial Thought Content: denies SI/HI's and AVH's, paranoia, somewhat delusional Motor Activity: ambulatory Cognition: A/O x3 Insight: variable Judgment: variable Assessment and Plan Impression: Unspecified Psychosis. Cannabis Use DO. Hx of Depression per the patient. Today the patient is cooperative, but irritable during the assessment. DDx: R/O Bipolar DO with psychosis, Substance Induced Psychosis Recommendation/Plan: Continue 1013 and gather collateral information. Risk/Benefits discussed with the patient reference antipsychotics, she prefer not to take any new medication at this time. Will follow up with the patient in 24 hours. Dispo: The patient was referred to inpatient psy services. The referral process was explained to the patient's assigned nurse. Staffed with Dr Vitor Gates.
[2018-06-22] MEDS: AMBIEN PO PRN (21:57)
[2018-06-23] MEDS: TYLENOL PO PRN ×3 (05:51→18:00)
--- NOTE | 2018-06-23 10:52 | Event Note ---
Date: 06/22/18 (LATE ENTRY) Pt seen by provider last evening around 1800pm. She has no specific c/o at this time. She initially told provider " you are my doctor." and ended exam with calling provider a liar stating that she never met provider though I reminded her I saw her Friday evening and met her initally at this time. Provider was repeatedly called a liar and told that conversation is being recorded and she is going to [place] [facility] hospital. She repeats she was 1013 due to not having a place to stay. She became very agitated as I repeatly tried to explain that this is not the case. I d/w findings from surgery that she did not appear to have an ectopic and her tubes appeared normal. Again provider called liar. All incisions are well healed and she is cleared for d/c from obgyn standpoint. Awaiting clearance from psych.
--- NOTE | 2018-06-23 12:49 | Progress Note ---
Subjective - Reason for Consult Consult date: 06/23/18 Reason for consult: Psychiatry Follow-up - Chief Complaint Chief complaint: "Jarred" Patient is a 37-year-old female 3 who presented to the ER for pelvic pain. The patient is 8 weeks . Psychiatry was consulted to see the patient for bizarre behavior. Today the patient is irritable and hyper verbal during the assessment. She's adamant that she was placed on a 1013 be cause of homelessness. I the provider attempted several times to explain to the patient the criteria for the 1013. She stated, "I'm suing the hospital." She denies SI/HI's and AVH's. Mental Status Exam - Vital signs Last Vital Signs Temp 98.7 F 06/23/18 07:36 Pulse 71 06/23/18 07:36 Resp 20 06/23/18 07:36 BP 108/59 06/23/18 07:36 Pulse Ox 100 06/23/18 07:36 - Exam Narrative exam: MSE: Appearance: in hospital attire Behavior: regular eye contact Speech: hyper verbal Mood:: irritable Affect: congruent to mood Thought Process: circumstantial Thought Content: denies SI/HI's and AVH's, somewhat delusional Motor Activity: ambulatory Cognition: A/O x3 Insight: variable Judgment: variable Assessment and Plan Impression: Unspecified Psychosis. Cannabis Use DO. Hx of Depression per the patient. Today the patient is irritable during the assessment. The patient is . DDx: R/O Bipolar DO with psychosis, Substance Induced Psychosis Recommendation/Plan: Continue 1013 and gather collateral information. Left a voicemail for Uriah the patient's boyfriend to gather collateral information. Recommend Haldol 2 mg IM Q6hrs PRN for acute agitation. Latuda is the recommended medication once transferred. This medication isn't on fornulary at [facility]. Risk/Benefits discussed with the patient reference antipsychotics, she prefer not to take any new medication at this time. Dispo: The patient was referred to inpatient psy services. The referral process was explained to the patient's assigned nurse. Staffed with Dr Samantha Gates.
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
[2018-06-23 16:32] LABS: Bilirubin,Urine NEG (Negative); Blood,Urine NEG (Negative); Color,Urine Yellow (Yellow); Mucus,Urine FEW /HPF; Protein,Urine <15 mg/dL mg/dL (Negative); Urobilinogen,Urine < 2.0 mg/dL (<2.0); WBC,Urine < 1.0 /HPF (0.0-6.0)
--- NOTE | 2018-06-23 16:37 | Cat Scan Report ---
PROCEDURE: CT HEAD/BRAIN WO CON TECHNIQUE: Spiral imaging of the brain was obtained without the use of IV contrast material. HISTORY: evaluate for brain anomalies COMPARISONS: None FINDINGS: Brain: Brain density appears normal. No evidence of intracranial hemorrhage. No parenchymal hemorr deangelo, mass lesions or mass effect are seen. No abnormal extra-axial fluid collects or masses are see n. Ventricles: Ventricles are normal size and are midline. Bone Windows: No evidence of skull fracture. Paranasal sinuses: Visualized portions are clear.. Mastoid air cells: Clear. IMPRESSION: Negative exam. No acute or focal abnormality is identified. No focal anomalies are identified. If cli nically indicated MRI of the brain could be obtained for further evaluation. This document is electronically signed by Zackary Chavez MD., June 23 2018 04:34:34 PM ET
[2018-06-23 16:39] LABS: Amphetamine Screen,Urine PRESUMPTIVE NEGATIVE; Benzodiazepines Screen,Urine PRESUMPTIVE NEGATIVE; Cocaine Screen,Urine PRESUMPTIVE NEGATIVE; Methadone Screen,Urine PRESUMPTIVE NEGATIVE; Opiate Screen,Urine PRESUMPTIVE NEGATIVE
[2018-06-23 16:52] LABS: Cannabinoid Screen,Urine PRESUMPTIVE POSITIVE
[2018-06-23 19:21] LABS: Hematocrit 39.3 % (30.3-42.9); Hemoglobin 13.5 gm/dl (10.1-14.3); Mean Corpuscular HGB Conc 34 % (30-34); Mean Corpuscular Volume 101 fl (79-97); Platelet Count 317 K/mm3 (140-440); Red Blood Count 3.88 M/mm3 (3.65-5.03); Red Cell Distribution Width 12.3 % (13.2-15.2)
[2018-06-23 19:38] LABS: Alanine Aminotransferase 10 units/L (7-56); BUN/Creatinine Ratio 16; Blood Urea Nitrogen 8 mg/dL (7-17); Hemolysis Index 7
[2018-06-23] MEDS: AMBIEN PO PRN (23:06)
[2018-06-24] MEDS: TYLENOL PO PRN ×4 (00:06→20:05)
[2018-06-24] MEDS ORDERED: TYLENOL PO ONE (03:16)
[2018-06-24] MEDS ORDERED: ATIVAN PO ONE ×2 (04:23→22:16)
--- NOTE | 2018-06-24 08:50 | Event Note ---
Date: 06/24/18 Pt seen and evaluated. All incisions are c/d/i w/o an s/sx of infection. Pt requesting one time dose of percocet. I d/w that at next time for pain meds to be given she will get the one time dose. She has no obgyn c/o voiced this am. Pt is clear to be d/c from obgyn standpoint. All requested studies have been done. Awaiting placement in inpatient care ps facility. Her f/u planning is to establish care with an ob once she is d/c to home.
[2018-06-24] MEDS ORDERED: PERCOCET 5/325 PO ONE (10:00)
--- NOTE | 2018-06-24 12:26 | Progress Note ---
Subjective - Reason for Consult Consult date: 06/24/18 Reason for consult: Psychiatric Follow-up Evaluation - Chief Complaint Chief complaint: "I'm being held hostage" Patient is a 37-year-old female 3 who presented to the ER for pelvic pain. The patient is 8 weeks . Psychiatry was consulted to see the patient for bizarre behavior. Today the patient is irritable and anxious during the assessment. Patient can be heard being verbally aggressive with sitter. She continue to have paranoid delusions and labile mood. I the provider attempted several times to explain to the patient the criteria for the 1013. She stated, "I do not need to be here." She denies SI/HI's and AVH's. 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 Hx of Depression per the patient. Today the patient is irritable and anxious during the assessment. The patient is . DDx: R/O Bipolar DO with psychosis, Substance Induced Psychosis Recommendation/Plan: 1. Continue 1013 and gather collateral information. Will attempt to contact boyfriend . 2. Recommend Haldol 2 mg IM Q6hrs PRN for acute agitation. Latuda is the recommended medication once transferred. This medication isn't on fornulary at [facility]. Risk/Benefits discussed with the patient reference antipsychotics, she prefer not to take any new medication at this time. Disposition: The patient was referred to inpatient psychiatric services. Awaiting acceptance from [facility] ( documents have been faxed). Staffed with Dr. Vitor Gates.
[2018-06-25] MEDS ORDERED: ATIVAN PO ONE (00:45)
[2018-06-25] MEDS: TYLENOL PO PRN (06:05)
--- NOTE | 2018-06-25 10:18 | Progress Note ---
Subjective - Reason for Consult Consult date: 06/25/18 Reason for consult: Psychiatry Follow-up - Chief Complaint Chief complaint: "I' spoke with my mom" Patient is a 37-year-old female 3 who presented to the ER for pelvic pain. The patient is 8 weeks . Psychiatry was consulted to see the patient for bizarre behavior. Today the patient is calm and cooperative during the assessment. This is the first time the patient isn't irritable during the assessment. She stated that she was able to speak with her boyfriend and her mother last night by phone. She stated that she was not able to do that, so she felt like she was being held "hostage." She stated that plan to visit her today and take her home if discharged. She denies SI/HI's and AVH's. She stated that she slept "well" last night. 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 Hx of Depression per the patient. Today the patient is calm and cooperative during the assessment. The patient is . No overt psychosis with the patient. DDx: R/O Bipolar DO with psychosis, Substance Induced Psychosis Recommendation/Plan: The patient's 1013 and will not be extended. Latuda is the recommended medication once transferred or discharged. This medication isn't on fornulary at [facility]. Risk/Benefits discussed with the patient reference antipsychotics, she prefer not to take any new medication at this time. Dispo: The patient can follow up with [facility] for outpatient psy services. Staffed with Dr Matson.
--- NOTE | 2018-06-25 11:40 | Discharge Summary ---
Providers - Providers Date of Admission: 06/17/18 20:43 Date of discharge: 06/25/18 (pt released by ; 1013 cancelled) Attending physician: EREN DIAZ 06/18/18 01:48 Consult to Mental Health [CONS] Stat Reason For Exam: Erratic behavior Place consult to:: mental health Notified:: w[place]ka 06/19/18 01:49 Consult to Case Management [CONS] Routine Services Needed at Discharge: [employer] Notified:: yes Was contact made?: Yes If yes, spoke with:: Linda Time called:: 09:00 Comment:: updated on patient given. [facility] Reason for admission: abdominal pain Condition: Good Hospital course: pt had lap to explore poss ectopic. Recovered well Pt found to have exacerbated mental health issues placed on 1013 on M/B Released for d/c by today 1013 lifted Disposition: DC-01 TO HOME OR SELFCARE - Discharge Diagnoses (1) 9 weeks gestation of Status: Acute (2) Bipolar disorder without psychotic features Status: Acute Core Measure Documentation - Palliative Care Palliative Care/ Comfort Measures: Not Applicable - Core Measures Any of the following diagnoses?: none - VTE Discharge Requirements Deep Vein Thrombosis/Pulmonary Embolism Present on Admission: No Has pt received <5 days of overlap therapy or INR<2.0: No Anticoagulant overlap therapy prescribed at discharge: No Contraindication No Overlap Therapy order at DC: Not Indicated - Acute NH Discharge Requirements Aspirin at discharge: No Reason for no aspirin on DC: Medical contraindication CATHERINE/ARB for LVSD if EF <40%: Not Applicable Reason for no CATHERINE/ARB: Medical contraindication Beta rocio at discharge: No Reason for no beta rocio on DC: Medical contraindication Statin for LDL = or >100 mg/dl on DC: Not Applicable Reason for no statin on DC: Medical contraindication - Heart Failure Discharge Requirements CATHERINE/ARB for LVSD if EF <40%: Not Applicable Reason for no CATHERINE/ARB: Medical contraindication Beta rocio at discharge: No Reason for no beta rocio on DC: Medical contraindication - Stroke Discharge Requirements Statin for LDL = or >70 mg/dl on DC: Not Applicable Reason for no statin on DC: Not Indicated Anticoag for atrial fib/atrial flutter: Not Applicable Reason for no anticoag for AF/F on DC: Not Indicated Antithrombotic for ischemic stroke: No Reason for no antithrombotic on DC: Not Indicated Exam - Constitutional Vitals: Temp Pulse Resp BP Pulse Ox 98 F 78 20 112/67 97 06/24/18 16:30 06/25/18 07:22 06/25/18 07:22 06/25/18 07:22 06/25/18 07:22 General appearance: Present: no acute distress, well-nourished - EENT Eyes: Present: PERRL ENT: hearing intact, clear oral mucosa - Neck Neck: Present: supple, normal ROM - Respiratory Respiratory effort: normal Respiratory: bilateral: CTA - Cardiovascular Heart Sounds: Present: S1 & S2. Absent: rub, click - Extremities Extremities: pulses symmetrical, No edema Peripheral Pulses: within normal limits - Abdominal General gastrointestinal: Present: soft, non-tender, non-distended, normal bowel sounds Female genitourinary: Present: normal - Rectal Rectal Exam: deferred - Integumentary Integumentary: Present: clear, warm, dry - Musculoskeletal Musculoskeletal: gait normal, strength equal bilaterally Plan Activity: advance as tolerated Follow up with: YG LIGHT MD [Primary Care Provider] - 3-5 Days EREN DIAZ MD [Staff Physician] - 7 Days (Call OB office to establish care when you can. Make appointment with mental health provider as instructed) Forms: Outpatient Surgery DC Inst. Prescriptions: oxyCODONE /ACETAMINOPHEN [Percocet 5/325] 1 tab PO Q6HR PRN #5 tablet PRN Reason: Pain Pnv No.118/Iron Fumarate/FA [ 19 Chewable] 1 each PO QDAY #90 tab.chew
[2018-06-25 13:00] VITALS: BP 112/81
--- NOTE | 2018-06-25 14:23 | Ultrasound Report ---
ULTRASOUND OB LESS THAN 14 WEEKS FETUS HISTORY: with vaginal bleeding TECHNIQUE: Transabdominal ultrasound imaging. FINDINGS: Compared to the transabdominal and transvaginal ultrasound dated 06/17/18. The uterus measures 11.3 x 6.3 x 7.3 cm. An intrauterine gestational sac containing a pole is identified. Heart rate measures 162 beats per minute. [place]-rump length correlates with a 10 week 2 day . No subchorionic hemorrhage is appreciated. The placenta appears to be forming anteriorly. The ovaries are normal size, contour and echotexture. No ovarian cyst or mass. The previously described possible heterotopic in the left adnexa is not demonstrated on today's transabdominal exam. Please note this structure was seen previously on transvaginal exam. IMPRESSION: Viable, single intrauterine is demonstrated on today's exam. Possible heterotopic mentioned on the previous transvaginal ultrasound is not demonstrated on today's exam. See above.
== END 2018-06-25 13:45 | disposition home or self-care (01) | DRG 832 ==
LOC: ED 06:47 → OR 14:14 → EEVIPCON 20:43 → OB 20:43
PROVIDERS: ADMIT Obstetrics & Gynecology; ATTEND Obstetrics & Gynecology
PROC: 10J24ZZ Inspection of Products of Conception, Ectopic, Percutaneous Endoscopic Approach (ICD-10-PCS; principal; 2018-06-17)
DX: O00.112 Left tubal pregnancy with intrauterine pregnancy (principal); F23 Brief psychotic disorder; O99.321 Drug use complicating pregnancy, first trimester; F31.9 Bipolar disorder, unspecified; O99.341 Other mental disorders complicating pregnancy, first trimester; O99.331 Smoking (tobacco) complicating pregnancy, first trimester; F17.200 Nicotine dependence, unspecified, uncomplicated; O99.311 Alcohol use complicating pregnancy, first trimester; F12.90 Cannabis use, unspecified, uncomplicated; Z91.040 Latex allergy status; Z3A.08 8 weeks gestation of pregnancy; Z79.899 Other long term (current) drug therapy; Z72.89 Other problems related to lifestyle
CPT/HCPCS: 36415; 70450; 76801; 76817; 80053; 80307; 81001; 83690; 84439; 84443; 84481; 84702; 84703; 85025; 85027; 86850; 86900; 86901; 96361; 96374; 96375; 99285; G0378; A4217; J0690; J1100; J1170; J2060; J2370; J2405; J2704; J2710; J3010; J7030; J7120; Q0162